=== PATIENT | male | born 1950 | race Caucasian/White ===

== ENCOUNTER → 2017-06-12 | Outpatient (CLI) | payer MEDICARE ==
--- NOTE | 2017-06-12 16:27 | PCVCIMAG ---
APPROVED REPORT Study performed: 06/12/2017 10:07:20 EXAM: Comprehensive 2D, Doppler, and color-flow Echocardiogram Status: routine BSA: 2.30 HR: 63 bpmBP: 120/80 mmHg Rhythm: NSR Other Information Study Quality: Good Indications Mitral Valve Prolapse Murmur CAD Hypertension/HDD Stent 2D Dimensions IVSd: 7.89 (7-11mm)LVOT Diam: 19.06 (18-24mm) LVDd: 63.81 mm LVPWs: 34.76 mm PWd: 8.28 (7-11mm)Ascending Ao: 36.70 (22-36mm) LVDs: 36.17 (25-40mm) Left Atrium: 50.42 (27-40mm) Aortic Root: 34.06 mm LV Single Plane 4CH: 55.28 % Volumes Left Atrial Volume (Systole) Single Plane 4CH: 83.06 mLSingle Plane 2CH: 103.44 mL LA ESV Index: 41.00 mL/m2 Aortic Valve AoV Peak Kurt.: 1.28 m/s AO Peak Gr.: 6.57 mmHgLVOT Max P.46 mmHg LVOT Max V: 1.06 m/s THUY Vmax: 2.35 cm2 AI Vmax: 4.11 m/s AI Furnas: 2.44 m/s2 AI PHT: 487.99 ms Mitral Valve E/A Ratio: 1.5 MV Decel. Time: 163.35 ms MV E Max Kurt.: 1.02 m/s MV A Kurt.: 0.66 m/s IVRT: 86.51 ms TDI E/Lateral E': 9.27E/Medial E': 12.75 Medial E' Kurt.: 0.08 m/s Lateral E' Kurt.: 0.11 m/s Pulmonary Valve PV Peak Gr.: 2.30 mmHg Pulmonary Vein P Vein S: 0.51 m/sP Vein A: 0.29 m/s P Vein D: 0.76 m/sP Vein A Dur.: 110.7 msec P Vein S/D Ratio: 0.67 Tricuspid Valve TR Peak Kurt.: 2.48 m/s TR Peak Gr.: 24.59 mmHg Left Ventricle Left ventricle is mildly dilated. Distal Apical septum hypokinesis. There is normal left ventricular wall thickness. Left ventricular systolic function is normal. The left ventricular ejection fraction is within the normal range. LVEF is 50-55%. Grade II - pseudonormal filling dynamics. Right Ventricle The right ventricle is normal size. The right ventricular systolic function is normal. Atria Left atrium is severely dilated. Right atrium is dilated. Aortic Valve The aortic valve is normal in structure. Trace to mild aortic regurgitation. There is no aortic valvular stenosis. Mitral Valve Mitral valve leaflets are moderately thickened. Mitral Valve Prolapse anterior and posterior leaflets. Moderate eccentric mitral regurgitation. No evidence of mitral valve stenosis. Tricuspid Valve The tricuspid valve is normal in structure. Trace tricuspid regurgitation. Pulmonary artery pressure is 32mmhg. Pulmonic Valve The pulmonary valve is normal in structure. Trace pulmonic regurgitation. Great Vessels The aortic root is normal in size. IVC is normal in size and collapses with >50% inspiration Pericardium There is no pericardial effusion. <Conclusion> Left ventricular systolic function is normal. The left ventricular ejection fraction is within the normal range. LVEF is 50-55%. Grade II - pseudonormal filling dynamics. The right ventricle is normal size. Left atrium is severely dilated. Right atrium is dilated. There is no aortic valvular stenosis. Mitral valve leaflets are moderately thickened. Mitral Valve Prolapse anterior and posterior leaflets. Trace tricuspid regurgitation. Pulmonary artery pressure is 32mmhg. There is no pericardial effusion.
== END | disposition home or self-care (01) ==
LOC: PCVCIMAG 09:11
PROVIDERS: ATTEND Internal Medicine Cardiovascular Disease
DX: I08.3 Combined rheumatic disorders of mitral, aortic and tricuspid valves (principal); I25.5 Ischemic cardiomyopathy; I10 Essential (primary) hypertension; I25.10 Atherosclerotic heart disease of native coronary artery without angina pectoris; I77.9 Disorder of arteries and arterioles, unspecified; I44.0 Atrioventricular block, first degree; E78.00 Pure hypercholesterolemia, unspecified; Z95.5 Presence of coronary angioplasty implant and graft; Z79.82 Long term (current) use of aspirin
CPT/HCPCS: 80061; 93306; G0463

== ENCOUNTER → 2018-06-11 | Outpatient (CLI) | payer MEDICARE | END | disposition home or self-care (01) | LOC: PCVCCLINIC 15:20 | PROVIDERS: ATTEND Internal Medicine Cardiovascular Disease | DX: I25.10 Atherosclerotic heart disease of native coronary artery without angina pectoris (principal); I10 Essential (primary) hypertension; E78.00 Pure hypercholesterolemia, unspecified; I34.1 Nonrheumatic mitral (valve) prolapse; R09.89 Other specified symptoms and signs involving the circulatory and respiratory systems; Z79.82 Long term (current) use of aspirin | CPT/HCPCS: 80061; 93005; G0463 ==

== ENCOUNTER → 2019-01-07 | Outpatient (CLI) | payer MEDICARE ==
--- NOTE | 2019-01-07 10:19 | PCVCIMAG ---
APPROVED REPORT Indications Stenosis Doppler Spectral Velocity Analysis PSV / EDVPSV / EDV ECA (R) 86 / 12 cm/sECA (L) 69 / 10 cm/s dICA (R) 60 / 22 cm/sdICA (L) 55 / 20 cm/s Josué (R) 65 / 25 cm/smICA (L) 65 / 24 cm/s pICA (R) 63 / 19 cm/spICA (L) 57 / 16 cm/s Bulb (R) 64 / 15 cm/sBulb (L) 63 / 17 cm/s dCCA (R) 53 / 13 cm/sdCCA (L) 66 / 15 cm/s mCCA (R) 79 / 17 cm/smCCA (L) 82 / 22 cm/s Vert (R) 47 / 15 cm/sVert (L) 38 / 14 cm/s ICA/CCA 1.23ICA/CCA 0.98 Findings The right carotid bulb has mild-moderate plaque. The right proximal internal carotid artery shows <40% stenosis. The right common carotid artery shows no significant stenosis. The right external carotid artery shows no significant stenosis. The left carotid bulb has minimal plaque. The left proximal internal carotid artery shows no significant stenosis. The left common carotid artery shows no significant stenosis. The left external carotid artery shows no significant stenosis. Conclusion 1. Right internal carotid artey stenosis (<40%) 2. Left internal carotid minimal plaquing without significant stenosis 3. Antegrade vertebral flow
--- NOTE | 2019-01-07 13:08 | PCVCIMAG ---
APPROVED REPORT Study performed: 01/07/2019 10:33:25 Exam: Stress Echocardiogram Indication: CAD s/p PCI,htn,diastolic dysdfunction,MVP Patient Location: Echo lab Stress Nurse: Kait Rouse RN Room #: 2 Status: routine Ht: 6 ft 0 in HR: 74 bpm BP: 140/90 mmHg Rhythm: NSR Medical History Medical History: CAD s/p stent, MVP, , HTN Cardiac Risk Factors: HTN Previous Cardiac Procedures: PCI Pretest Chest Pain Characteristics: No chest pain Exercise History: Indeterminate Procedure The patient underwent an Exercise Stress Test using the Devonte Protocol. Blood pressure, heart rate, and EKG were monitored. An Echocardiogram was performed by pattern technician in four stages in quad fashion. At peak stress, four selected images were obtained and placed side by side with resting images for comparison. Stress Test Details Stress Test: Exercise stress testing was performed using a Devonte protocol. HR Resting HR: 74 bpmMax Heart Rate (APMHR): 151 bpm Max HR Achieved: 130 bpmTarget HR (85% APMHR): 128 bpm % of APMHR: 86 Recovery HR: 77 bpm HR response to stress: Normal HR response to stress BP Resting BP: 140/90 mmHg Max BP: 180/64 mmHg Recovery BP: 136/74 mmHg BP response to stress: Normal blood pressure response to stress. ECG Resting ECG: Incomplete RBBB,old apical MS Stress ECG: Incomplete RBBB,old apical MS ST Change: Non-ischemic Maximum ST Deviation: 1.05 mm Arrhythmia: Rare PVCs Recovery ECG: Sinus Rhythm,Incomplete RBBB Recovery ST Change: Non-ischemic Recovery ST Deviation: 0.40 mm Recovery Arrhythmia: None Clinical Reason for Termination: Maximal effort Stress Symptoms: Dyspnea Exercise duration: 9 min 00 sec Highest Stage Achieved: Stage 3: 3.4 mph at 14% grade. Exercise capacity: 10.1 METs Overall Exercise Capacity for Age: Normal Scale: Active Angina Score: None No complications. Stress ECG Conclusion The patient exercised according to the DEVONTE protocol for 9:00 mins; achieving a work level of 10.1 METS. The resting heart rate of 74 bpm ronnie to a maximum heart rate of 130 bpm. This value represent 86% of the maximal, age-predicted heart rate. The resting blood pressure of 140/90 mmHg, ronnie to a maximum blood pressure of 180/60mmHg. The exercise test was stopped due to fatigue. Larsen Treadmill Score is 3.8 which is Moderate risk. Pre-Stress Echo The resting Echocardiogram showed normal left ventricular contractility with an estimated Ejection Fraction of about 55-60%. Normal wall motion in all segments on baseline images except the apical anteroseptal and apex which are consistent with known old damage. Post-Stress Echo Normal augmentation of wall motion in all segments on post stress images. No change was seen in the apical anteroseptal and apex segments. Clinical No clinical or ECG evidence for ischemia. Conclusion Clinical Response: Non-ischemic Exercise Capacity: Average Stress ECG Response: Non-ischemic Stress Echo Images: Non-ischemic No echocardiographic evidence for exercise induced ischemia. No clinical, EKG or echocardiographic evidence for ischemia. Normal stress echocardiogram with maximal exercise stress. Prolapse of the anterior leaflet with an eccentric jet toward the posterior wall is seen. Moderate mitral regurgitation. <Conclusion> No echocardiographic evidence for exercise induced ischemia. No clinical, EKG or echocardiographic evidence for ischemia. Normal stress echocardiogram with maximal exercise stress. Prolapse of the anterior leaflet with an eccentric jet toward the posterior wall is seen. Moderate mitral regurgitation.
--- NOTE | 2019-01-07 17:04 | PCVCIMAG ---
EXAM: ULTRASOUND OF THE THYROID INDICATION: Thyroid nodules. FINDINGS: The right thyroid lobe measures 1.4 x 2.6 x 4.3 cm. The left thyroid lobe measures 2.0 x 2.2 x 3.6 cm. 0.7 x 0.9 x 1.2 cm solid nodule mid right thyroid lobe. 0.5 x 0.7 x 0.7 cm solid nodule lower right thyroid lobe. 1.7 x 2.3 x 2.7 cm solid nodule mid left thyroid lobe. 0.6 x 0.8 x 0.8 cm solid nodule lower left thyroid lobe medially. IMPRESSION: Several thyroid nodules as detailed above are indeterminate by ultrasound criteria, the largest measuring 2.7 cm and the left thyroid lobe. No prior studies for comparison. Further evaluation with ENT is suggested. LOC:[id number]
== END | disposition home or self-care (01) ==
LOC: PCVCIMAG 09:44
PROVIDERS: ATTEND Internal Medicine Cardiovascular Disease
DX: I65.23 Occlusion and stenosis of bilateral carotid arteries (principal); E04.1 Nontoxic single thyroid nodule; I25.10 Atherosclerotic heart disease of native coronary artery without angina pectoris; I34.1 Nonrheumatic mitral (valve) prolapse; I10 Essential (primary) hypertension
CPT/HCPCS: 76536; 93325; 93351; 93880

== ENCOUNTER → 2019-08-20 | Outpatient (CLI) | payer MEDICARE | END | disposition home or self-care (01) | LOC: PCVCCLINIC 15:28 | PROVIDERS: ATTEND Internal Medicine Cardiovascular Disease | DX: I25.10 Atherosclerotic heart disease of native coronary artery without angina pectoris (principal); E78.00 Pure hypercholesterolemia, unspecified; I10 Essential (primary) hypertension; I65.23 Occlusion and stenosis of bilateral carotid arteries; I38 Endocarditis, valve unspecified; Z95.1 Presence of aortocoronary bypass graft; Z90.09 Acquired absence of other part of head and neck; Z82.49 Family history of ischemic heart disease and other diseases of the circulatory system; Z79.82 Long term (current) use of aspirin; Z79.899 Other long term (current) drug therapy | CPT/HCPCS: 36415; 80061; 93005; G0463 ==